=== PATIENT | female | born 2005 | race Hispanic/Latino ===

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

== ENCOUNTER 2024-10-10 16:59 | Emergency (ER) | payer SELFPAY ==
[2024-10-10 17:49] LABS: SARS-CoV-2 Antigen CONTROL BLUE LINE VIS/BG OK; SARS-CoV-2 Antigen Rapid Res Negative (Negative)
[2024-10-10] MEDS ORDERED: NA CHLORIDE 0.9% 1,000 ML ONE (18:36)
[2024-10-10 18:44] LABS: Absolute Basophils 0.1 K/uL (0-0.5); Absolute Lymphocytes (CBC) 1.8 K/uL (0.7-4.9); Absolute Monocytes 0.7 K/uL (0.1-1.3); Absolute Neutrophil 7.2 K/uL (1.8-8.0); Basophils % 0.6 % (0-1.3); Eosinophils % 0.5 % (0-4.4); Hematocrit 38.8 % (36.0-45.0); Hemoglobin 12.9 g/dL (12.0-15.0); Lymphocytes % 18.1 % (15.3-44.8); MCH 28.4 pg (27.0-35.0); MCHC 33.2 g/dL (32.0-36.0); MCV 85.7 fL (80-100); MPV 8.5 fL (7.6-11.3); Neutrophils % 73.8 % (41.7-73.7); Nucleated Red Blood Cells % 0.2 % (0-0); Platelets 272 thou/uL (152-406); RBC Red Blood Cell Count 4.53 M/uL (3.86-4.86); Red Cell Distribution Width 13.6 % (12.1-15.2)
[2024-10-10 18:51] LABS: Monoscreen NEG (NEG)
[2024-10-10 19:06] LABS: Anion Gap 6.6 mEq/L (5.0-15.0); Potassium 3.6 mEq/L (3.5-5.1); Thyroid Stimulating Hormone 2.02 uIU/mL (0.358-3.740)
--- NOTE | 2024-10-10 19:21 | EDPHYS ---
Physician Documentation [facility] Name: Noreen Corral Age: 19 yrs Sex: Female : 2005 Arrival Date: 10/10/2024 Time: 16:59 Bed 18 Private MD: ED Physician Ángel Mclain HPI: 10/10 19:28 This 19 yrs old Female presents to ER via Ambulatory with complaints of Flu kb Symptoms. 19:28 Pt is a 19 year old female who presents for cough, sore throat, fever, fatigue and kb malaise that started 3 days ago. States symptoms have been getting worse. Concerned about throat because she was diagnosed with hypothryroidism in 2022 and ran out of medicine so she hasn't taken any in a long time. . Historical: - Allergies: 17:05 No Known Allergies; ll1 - PMHx: 17:06 thyroid problems; ll1 - PSHx: 17:05 None; ll1 - Immunization history:: Adult Immunizations. - Infectious Disease History:: Denies. - Social history:: Smoking status: Patient denies any tobacco usage or history of. ROS: 17:18 Constitutional: As per HPI kb Exam: 17:18 Constitutional: This is a well developed, well nourished patient who is awake, alert, kb and in no acute distress. Head/Face: Normocephalic, atraumatic. ENT: Moist Mucous membranes Neck: Trachea midline and no cervical lymphadenopathy. Supple, full range of motion without nuchal rigidity, or vertebral point tenderness. No Meningismus. Cardiovascular: Regular rate Respiratory: Respirations even and unlabored. No increased work of breathing. Talking in full sentences Skin: Warm, dry with normal turgor. Normal color. MS/ Extremity: Pulses equal, no cyanosis. Neurovascular intact. Full, normal range of motion. Neuro: Awake and alert, GCS 15, oriented to person, place, time, and situation. Vital Signs: 17:10 BP 150 / 95; Pulse 107; Resp 18; Temp 97.9; Pulse Ox 100% on R/A; Height 5 ft. 6 in. ; ll1 Pain 8/10; 17:13 Weight 123.83 kg; ll1 18:16 BP 116 / 71; Pulse 107; Resp 18 S; Pulse Ox 99% on R/A; kc6 17:10 Pain Scale: Adult ll1 MDM: 17:03 Medical Screening Exam initiated kb 19:27 Differential diagnosis: flu, covid, uri, mono, strep, viral infection, hypothyroidism. kb Data reviewed: vital signs, nurses notes. Historians other than the Patient: Parent: mother. Counseling: I had a detailed discussion with the patient and/or guardian regarding the historical points, exam findings, and any diagnostic results supporting the discharge/admit diagnosis, lab results, the need for outpatient follow up, a family practitioner, to return to the emergency department if symptoms worsen or persist or if there are any questions or concerns that arise at home. 10/10 17:15 Order name: SARS-COV-2 Antigen Rapid; Complete Time: 17:49 kb 10/10 17:15 Order name: Strep kb 10/10 17:15 Order name: Flu; Complete Time: 17:49 kb 10/10 17:53 Order name: Throat Culture EDMS 10/10 18:24 Order name: CBC with Diff; Complete Time: 18:59 kb 10/10 18:24 Order name: BMP; Complete Time: 19:08 kb 10/10 18:24 Order name: Amelia Screen Profile; Complete Time: 18:53 kb 10/10 18:24 Order name: TSH; Complete Time: 19:08 kb 10/10 17:18 Order name: PO challenge; Complete Time: 17:27 kb 10/10 18:24 Order name: IV Start; Complete Time: 18:35 kb Administered Medications: 18:39 Drug: NS 0.9% IV 1000 ml IV at 1000 ml once; to be given as a bolus over 60 minutes kc6 Route: IV; Rate: 1000 ml; Site: right forearm; 20:40 Follow up: Response: No adverse reaction; IV Status: Completed infusion; IV Intake: ay 1000ml Disposition Summary: 10/10/24 19:20 Discharge Ordered Notes: Location: Home kb Condition: Stable kb Diagnosis - Viral infection, unspecified kb Followup: kb - With: Emergency Department - When: As needed - Reason: Worsening of condition Followup: kb - With: Private Physician - When: 2 - 3 days - Reason: Recheck today's complaints, Continuance of care, Re-evaluation by your physician Discharge Instructions: - Discharge Summary Sheet kb - Viral Illness, Adult kb Forms: - Medication Reconciliation Form kb - Antibiotic Education kb - Prescription Opioid Use kb - Patient Portal Instructions kb - Leadership Thank You Letter kb Signatures: Dispatcher [employer] Becca Shelton, IZABEL REYES-Richie Don RN RN ll1 Jaz Smith RN RN kc6 Luis Callahan RN ay Corrections: (The following items were deleted from the chart) 17:06 17:05 PMHx: None; ll1 ll1 19:29 19:28 Pt is a 19 year old female who presents for cough, sore throat, fever and malaise kb that started 3 days ago. kb
--- NOTE | 2024-10-10 19:21 | ER ---
Nurse's Notes [facility] Name: Noreen Corral Age: 19 yrs Sex: Female : 2005 Arrival Date: 10/10/2024 Time: 16:59 Bed 18 Private MD: Diagnosis: Viral infection, unspecified Presentation: 10/10 17:06 Chief complaint: Patient states: Cough, fatigue, fever since Tuesday, getting worse. ll1 Coronavirus screen: Client denies travel out of the [place] in the last 14 days. cough unrelated to allergies, fatigue, fever, vomiting. Client presents with at least one sign or symptom that may indicate coronavirus-19. Standard/surgical mask placed on the client. Ebola Screen: Patient denies travel to an Ebola-affected area in the 21 days before illness onset. Initial Sepsis Screen: Does the patient meet any 2 criteria? No. Patient's initial sepsis screen is negative. Does the patient have a suspected source of infection? No. Patient's initial sepsis screen is negative. Risk Assessment: Do you want to hurt yourself or someone else? Patient reports no desire to harm self or others. Onset of symptoms was October 08, 2024. 17:06 Method Of Arrival: Ambulatory ll1 17:06 Acuity: TOMASA 4 ll1 Triage Assessment: 17:06 General: Appears uncomfortable, Behavior is calm, cooperative, appropriate for age, ll1 Reports fever for feeling ill for fatigue for. EENT: Reports lump to throat area. Neuro: Reports headache. Respiratory: Reports cough that is. Historical: - Allergies: 17:05 No Known Allergies; ll1 - PMHx: 17:06 thyroid problems; ll1 - PSHx: 17:05 None; ll1 - Immunization history:: Adult Immunizations. - Infectious Disease History:: Denies. - Social history:: Smoking status: Patient denies any tobacco usage or history of. Screenin:27 [facility] ED Fall Risk Assessment (Adult) History of falling in the last 3 months, kc6 including since admission No falls in past 3 months (0 pts) Confusion or Disorientation No (0 pts) Intoxicated or Sedated No (0 pts) Impaired Gait No (0 pts) Mobility Assist Device Used No (0 pt) Altered Elimination No (0 pt) Score/Fall Risk Level 0 - 2 = Low Risk Oriented to surroundings, Maintained a safe environment, Educated pt \T\ family on fall prevention, incl call for assistance when getting out of bed. Abuse screen: Denies threats or abuse. Denies injuries from another. Nutritional screening: No deficits noted. Tuberculosis screening: No symptoms or risk factors identified. Assessment: 17:25 General: Appears in no apparent distress. comfortable, obese, well groomed, well kc6 developed, Behavior is cooperative, appropriate for age, restless, Reports fever for > 3 days, fatigue for >3 days, Denies fever, chills. Pain: Complains of pain in neck Pain does not radiate. Quality of pain is described as sharp. Neuro: Level of Consciousness is awake, alert, obeys commands, Oriented to person, place, time, situation, Appropriate for age Reports weakness generalized. Cardiovascular: Capillary refill < 3 seconds. Respiratory: Airway is patent Trachea midline Respiratory effort is even, unlabored, Respiratory pattern is regular, symmetrical. GI: No signs and/or symptoms were reported involving the gastrointestinal system. : No signs and/or symptoms were reported regarding the genitourinary system. EENT: Throat is pink has enlarged tonsils bilaterally with gag reflex present, Reports difficulty swallowing pain when swallowing. Derm: No signs and/or symptoms reported regarding the dermatologic system. Skin is intact, is healthy with good turgor, Skin is dry, Skin is pale, Skin temperature is warm. Musculoskeletal: No signs and/or symptoms reported regarding the musculoskeletal system. Circulation, motion, and sensation intact. Range of motion: intact in all extremities. 18:10 Reassessment: Patient appears in no apparent distress at this time. No changes from kc6 previously documented assessment. Patient and/or family updated on plan of care and expected duration. Pain level reassessed. Patient is alert, oriented x 3, equal unlabored respirations, skin warm/dry/pink. Vital Signs: 17:10 BP 150 / 95; Pulse 107; Resp 18; Temp 97.9; Pulse Ox 100% on R/A; Height 5 ft. 6 in. ; ll1 Pain 8/10; 17:13 Weight 123.83 kg; ll1 18:16 BP 116 / 71; Pulse 107; Resp 18 S; Pulse Ox 99% on R/A; kc6 17:10 Pain Scale: Adult ll1 ED Course: 17:03 Patient arrived in ED. im 17:03 Becca Nelson FNP-C [facility]. kb 17:03 Ángel Mclain MD is Attending Physician. kb 17:08 Triage completed. ll1 17:08 Arm band placed on. ll1 17:16 Jaz Smith, RN is Primary Nurse. kc6 17:26 Patient has correct armband on for positive identification. Bed in low position. Call kc6 light in reach. Side rails up X 1. Adult w/ patient. Pulse ox on. NIBP on. Door closed. Noise minimized. Lights dimmed. Pillow given. 17:26 Patient maintains SpO2 saturation greater than 95% on room air. kc6 17:31 Diet: Patient given snack. Patient given water. Tolerated well. kc6 18:35 Initial lab(s) drawn, by me, sent to lab. Inserted saline lock: 20 gauge in right kc6 forearm, using aseptic technique. Blood collected. Flushed with 10 mL NS. 18:56 Assisted to bathroom. kc6 19:05 Report given to RACHEL Smith. kc6 20:38 IV discontinued, intact, bleeding controlled, No redness/swelling at site. Pressure ay dressing applied. Administered Medications: 18:39 Drug: NS 0.9% IV 1000 ml IV at 1000 ml once; to be given as a bolus over 60 minutes kc6 Route: IV; Rate: 1000 ml; Site: right forearm; 20:40 Follow up: Response: No adverse reaction; IV Status: Completed infusion; IV Intake: ay 1000ml Intake: 20:40 IV: 1000ml; Total: 1000ml. ay Outcome: 19:20 Discharge ordered by . kb 20:38 Discharged to home ambulatory, ay 20:38 Condition: stable 20:38 Discharge instructions given to patient, Instructed on discharge instructions, follow up and referral plans. Demonstrated understanding of instructions, follow-up care, 20:39 Patient left the ED. ay Signatures: Becca Nelson FNP-C FNP-Richie Don RN RN ll1 Jaz Smith, RN RN kc6 Bharati Cordon Luis Callahan RN RN ay Corrections: (The following items were deleted from the chart) 17:06 17:05 PMHx: None; ll1 ll1 17:12 17:10 BP 150 / 95; Pulse 120bpm; Resp 18bpm; Pulse Ox 100% RA; Temp 97.9F; Height 5 ft. ll1 6 in.; Pain 8/10, Adult; ll1
[2024-10-10 20:48] VITALS: TEMP 97.9
[2024-10-10 20:58] VITALS: BP 116/71; O2SAT 99
== END 2024-10-10 20:39 | disposition home or self-care (01) ==
LOC: ER 16:59
DX: B34.9 Viral infection, unspecified (principal); Z11.52 Encounter for screening for COVID-19
CPT/HCPCS: 36415; 80048; 84443; 85025; 86308; 87070; 87081; 87804; 87811; J7030